=== PATIENT | male | born 1950 | race Caucasian/White ===

== ENCOUNTER → 2016-04-20 | Outpatient (CLI) | payer OTHER ==
--- NOTE | 2016-04-20 15:17 | DX ---
Cervical Spine, Two Views April 20, 2016 Indication: Fell last week. Pain. Technique: Upright AP and lateral views. Findings: The occiput through T1 is anatomically aligned. No acute fracture. Minimal age-appropriate degenerative disk disease is present at C5-C6 and C6-C7. Prevertebral soft tissues are normal. Minima l carotid calcified plaque on the left. Impressions 1. No fracture. 2. Minimal left calcified carotid plaque.
--- NOTE | 2016-04-20 18:16 | DX ---
Thoracic spine - 3 views dated April 20, 2016 Indication: Fall. Technique: AP, lateral, and swimmer's view. Comparison: Reconstruction of the thoracic spine from CT angiogram of the chest dated March 22 16 Findings: Thoracic spine is anatomically aligned. No compression fracture or paraspinal soft tissue s welling. Diffuse mild degenerative disk disease is unchanged. Impression: Negative. No acute fracture
== END ==
LOC: FIMAGING 09:32
PROVIDERS: ATTEND Physician Assistant
DX: M54.6 Pain in thoracic spine (principal); M54.2 Cervicalgia

== ENCOUNTER 2017-01-12 20:12 | Emergency (ER) | payer OTHER ==
[2017-01-12 20:24] VITALS: BP 108/72; PULSE 93; RESP 18; TEMP 98.1; O2SAT 93
[2017-01-12 20:46] LABS: % IMMATURE GRANULYOCYTES 0.6 % (0.0-1.1); ABSOLUTE IMMATURE GRANULOCYTES 0.05 10^3/uL (0.00-0.10); ADD DIFF? NO; ADD MORPH? NO; ADD SCAN? NO; ATYPICAL LYMPHOCYTE FLAG 0 (0-99); FRAGMENT RBC FLAG 0 (0-99); HEMATOCRIT 44.4 % (40.0-51.0); LEFT SHIFT FLG 0 (0-99); LIPEMIA HEMOLYSIS FLAG 90 (0-99); MEAN CELL HEMOGLOBIN 37.5 pg (27.9-34.1); MEAN CELL HEMOGLOBIN CONCENTR. 33.8 g/dL (32.4-36.7); MEAN PLATELET VOLUME 10.2 fL (8.7-11.7); PLATELET CLUMPS FLAG 10 (0-99); PLATELET COUNT 191 10^3/uL (150-400); RED CELL DISTRIBUTION WIDTH 11.8 % (11.5-15.2)
[2017-01-12 21:04] LABS: ALANINE AMINOTRANSFERASE 69 IU/L (21-72); ALBUMIN 4.2 g/dL (3.5-5.0); ALKALINE PHOSPHATASE 193 IU/L (38-126); ANION GAP 15 mEq/L (8-16); ASPARTATE AMINOTRANSFERASE 109 IU/L (17-59); BILIRUBIN,TOTAL 0.5 mg/dL (0.1-1.4); CALCIUM 10.6 mg/dL (8.5-10.4); CARBON DIOXIDE 20 mEq/l (22-31); CHLORIDE 101 mEq/L (97-110); CREATININE 1.4 mg/dL (0.7-1.3); GLOMERULAR FILTRATION RATE 50; GLUCOSE 118 mg/dL (70-100); POTASSIUM 4.7 mEq/L (3.5-5.2); SODIUM 136 mEq/L (134-144); TOTAL PROTEIN 7.4 g/dL (6.3-8.2)
--- NOTE | 2017-01-12 21:30 | EDPHY ---
H & P Stated Complaint: found down Time Seen by Provider: 01/12/17 21:07 HPI/ROS: CHIEF COMPLAINT: Overdose HISTORY OF PRESENT ILLNESS: The patient is a 58-year-old man who took his evening dose of his oxycodone and drink alcohol and then his found him minimally responsive. He was brought here by ambulance. He states that he does not need to be here. He denies suicidality. He is taking medicine for chronic left ankle pain. He denies any new injuries. He denies chest pain or shortness of breath. On I went to the room the patient had left to go outside and smoke his pipe. He eventually returned and allowed me to examine him. REVIEW OF SYSTEMS: Constitutional: denies: chills, fever, recent illness, recent injury EENTM: denies: blurred vision, double vision, nose congestion Respiratory: denies: cough, shortness of breath Cardiac: denies: chest pain, irregular heart rate, lightheadedness, palpitations Gastrointestinal/Abdominal: denies: abdominal pain, diarrhea, nausea, vomiting, blood streaked stools Genitourinary: denies: dysuria, frequency, hematuria, pain Musculoskeletal: See HPI Skin: denies: lesions, rash, jaundice, bruising Neurological: denies: headache, numbness, paresthesia, tingling, dizziness, weakness Hematologic/Lymphatic: denies: blood clots, easy bleeding, easy bruising Immunologic/allergic: denies: HIV/AIDS, transplant EXAM: GENERAL: Well-appearing, well-nourished and in no acute distress. HEAD: Atraumatic, normocephalic. EYES: Pupils equal round and reactive to light, extraocular movements intact, sclera anicteric, conjunctiva are normal. ENT: TMs normal, nares patent, oropharynx clear without exudates. Moist mucous membranes. NECK: Normal range of motion, supple without lymphadenopathy or JVD. LUNGS: Breath sounds clear to auscultation bilaterally and equal. No wheezes rales or rhonchi. HEART: Regular rate and rhythm without murmurs, rubs or gallops. ABDOMEN: Soft, nontender, normoactive bowel sounds. No guarding, no rebound. No masses appreciated. BACK: No CVA tenderness, no spinal tenderness, step-offs or deformities EXTREMITIES: Brace on left ankle, chronic pain, no swelling or deformity. No erythema. No Difficulty with weight-bearing. NEUROLOGICAL: Cranial nerves II through XII grossly intact. Normal speech, normal gait. 5/5 strength, normal movement in all extremities, normal sensation PSYCH: Normal mood, normal affect. SKIN: Warm, dry, normal turgor, no visible rashes or lesions. Source: Patient Exam Limitations: No limitations - Medical/Surgical History Hx Asthma: No Hx Chronic Respiratory Disease: No Hx Diabetes: No Hx Cardiac Disease: No Hx Renal Disease: No Hx Cirrhosis: No Hx Alcoholism: No Hx HIV/AIDS: No Hx Splenectomy or Spleen Trauma: No Other PMH: HTN/chronic back pain. Prostate cancer - Family History Significant Family History: No pertinent family hx - Social History Smoking Status: Former smoker Alcohol Use: Sober Drug Use: None Constitutional: Initial Vital Signs Temperature (C) 36.7 C 01/12/17 20:22 Heart Rate 93 01/12/17 20:22 Respiratory Rate 18 01/12/17 20:22 Blood Pressure 108/72 01/12/17 20:22 O2 Sat (%) 93 01/12/17 20:22 O2 Delivery Mode Nasal Cannula O2 (L/minute) 4 Allergies/Adverse Reactions: cocoa [chocolate] Allergy (Verified 03/22/16 21:53) iodine Allergy (Verified 03/22/16 22:30) Penicillins Allergy (Verified 06/03/15 08:16) DIFFICULTY BREATHING promethazine HCl [From Phenergan] Allergy (Verified 08/23/14 08:32) smallpox vaccine,live Allergy (Verified 08/23/14 08:33) coconut Allergy (Uncoded 03/22/16 21:53) Home Medications: Medication Instructions Recorded ALPRAZolam [Xanax 1 MG (*)] 1 mg PO HS 11/28/15 Lisinopril [Zestril 10 mg (*)] 10 mg PO DAILY 11/28/15 oxyCODONE CR [Oxycontin] 80 mg PO QID PRN 11/28/15 oxyCODONE IR [Oxycodone Ir (*)] 30 mg PO Q4-6PRN PRN 11/28/15 Meperidine HCl [Demerol 50 mg (*)] 50 mg PO Q6 PRN 03/22/16 Nicotine [Nicoderm Cq 21 mg (*)] 21 mg TD DAILY 03/23/16 amLODIPine BESYLATE [Norvasc 5 mg 5 mg PO DAILY 03/23/16 (*)] Apixaban [Eliquis] 5 mg PO BID #75 tablet 03/25/16 Medical Decision Making ED Course/Re-evaluation: When the patient came back to the room I discussed with him options. He he thinks that he was unresponsive because he took too much alcohol along with his medication. He is now clinically sober and is ambulating. He asked for more narcotic pain medication. I discussed start narcotic policy with him. I offered to treat him with Toradol or ibuprofen or Tylenol or muscle relaxants. The patient declines this and asked for us to call his to come pick him up. Differential Diagnosis: Partial list of the Differential diagnosis considered include but were not limited to; chronic pain, overdose, intoxication and although unlikely based on the history and physical exam, I also considered fracture, acute coronary disease, seizure, CVA, infection, aneurysm. I discussed these differential diagnoses and the plan with the patient as well as the usual and expected course. The patient understands that the diagnosis is provisional and that in medicine we are not always correct and that further workup is often warranted. Usual and customary warnings were given. All of the patient's questions were answered. The patient was instructed to return to the emergency department should the symptoms at all worsen or return, otherwise to followup with the physician as we discussed. - Data Points Laboratory Results: Laboratory Results 01/12/17 20:15 01/12/17 20:15 01/12/17 01/12/17 20:15 20:15 WBC 7.89 10^3/uL 10^3/uL (3.80-9.50) RBC 4.00 10^6/uL L 10^6/uL (4.40-6.38) Hgb 15.0 g/dL g/dL (13.7-17.5) Hct 44.4 % % (40.0-51.0) MCV 111.0 fL H fL (81.5-99.8) MCH 37.5 pg H pg (27.9-34.1) MCHC 33.8 g/dL g/dL (32.4-36.7) RDW 11.8 % % (11.5-15.2) Plt Count 191 10^3/uL 10^3/uL (150-400) MPV 10.2 fL fL (8.7-11.7) Neut % (Auto) 72.6 % % (39.3-74.2) Lymph % (Auto) 16.7 % % (15.0-45.0) [place] % (Auto) 8.5 % % (4.5-13.0) Eos % (Auto) 1.1 % % (0.6-7.6) Baso % (Auto) 0.5 % % (0.3-1.7) Nucleat RBC Rel Count 0.0 % % (0.0-0.2) Absolute Neuts (auto) 5.72 10^3/uL 10^3/uL (1.70-6.50) Absolute Lymphs (auto) 1.32 10^3/uL 10^3/uL (1.00-3.00) Absolute Monos (auto) 0.67 10^3/uL 10^3/uL (0.30-0.80) Absolute Eos (auto) 0.09 10^3/uL 10^3/uL (0.03-0.40) Absolute Basos (auto) 0.04 10^3/uL 10^3/uL (0.02-0.10) Absolute Nucleated RBC 0.00 10^3/uL 10^3/uL (0-0.01) Immature Gran % 0.6 % % (0.0-1.1) Immature Gran # 0.05 10^3/uL 10^3/uL (0.00-0.10) Sodium 136 mEq/L mEq/L (134-144) Potassium 4.7 mEq/L mEq/L (3.5-5.2) Chloride 101 mEq/L mEq/L (97-110) Carbon Dioxide 20 mEq/l L mEq/l (22-31) Anion Gap 15 mEq/L mEq/L (8-16) BUN 23 mg/dL mg/dL (7-23) Creatinine 1.4 mg/dL H mg/dL (0.7-1.3) Estimated GFR 50 Glucose 118 mg/dL H mg/dL (70-100) Calcium 10.6 mg/dL H mg/dL (8.5-10.4) Total Bilirubin 0.5 mg/dL mg/dL (0.1-1.4) AST 109 IU/L H IU/L (17-59) ALT 69 IU/L IU/L (21-72) Alkaline Phosphatase 193 IU/L H IU/L (38-126) Total Protein 7.4 g/dL g/dL (6.3-8.2) Albumin 4.2 g/dL g/dL (3.5-5.0) Departure - Departure Disposition: Home, Routine, Self-Care Clinical Impression: Overdose Qualifiers: Encounter type: initial encounter Injury intent: accidental or unintentional Qualified Code(s): T50.901A - Poisoning by unspecified drugs, medicaments and biological substances, accidental (unintentional), initial encounter Condition: Fair Instructions: Opioid Overdose (ED) Referrals: Deepak Jurado DO [Primary Care Provider] - As per Instructions
== END 2017-01-12 21:33 | disposition home or self-care (01) ==
LOC: EDBD → EDUNIT#
DX: T40.2X1A Poisoning by other opioids, accidental (unintentional), initial encounter (principal); I10 Essential (primary) hypertension; Z85.46 Personal history of malignant neoplasm of prostate; Z87.891 Personal history of nicotine dependence

== ENCOUNTER 2017-03-13 08:51 | Inpatient (IN) | payer OTHER ==
--- NOTE | 2017-03-13 09:18 | CPEKG ---
Heart Rate: 88 RR Interval: 682 P-R Interval: 172 QRSD Interval: 86 QT Interval: 356 QTC Interval: 431 P [place]: 35 QRS [place]: 12 T Wave [place]: 51 EKG Severity - NORMAL ECG - EKG Impression: SINUS RHYTHM Electronically Signed By: Thais Mejia 13-Mar-2017 15:04:30
[2017-03-13 09:20] LABS: % IMMATURE GRANULYOCYTES 0.6 % (0.0-1.1); ABSOLUTE IMMATURE GRANULOCYTES 0.09 10^3/uL (0.00-0.10); ADD DIFF? NO; ADD MORPH? NO; ADD SCAN? NO; ATYPICAL LYMPHOCYTE FLAG 0 (0-99); FRAGMENT RBC FLAG 0 (0-99); HEMATOCRIT 37.3 % (40.0-51.0); HEMOGLOBIN 13.3 g/dL (13.7-17.5); LEFT SHIFT FLG 10 (0-99); LIPEMIA HEMOLYSIS FLAG 90 (0-99); MEAN CELL HEMOGLOBIN 33.9 pg (27.9-34.1); MEAN CELL HEMOGLOBIN CONCENTR. 35.7 g/dL (32.4-36.7); MEAN CELL VOLUME 95.2 fL (81.5-99.8); PLATELET CLUMPS FLAG 0 (0-99); PLATELET COUNT 268 10^3/uL (150-400); RED BLOOD CELL COUNT 3.92 10^6/uL (4.40-6.38); RED CELL DISTRIBUTION WIDTH 12.3 % (11.5-15.2)
[2017-03-13] MEDS ORDERED: NS 1,000 ML IV ONE (09:23)
[2017-03-13 09:39] LABS: ALANINE AMINOTRANSFERASE 32 IU/L (21-72); ALBUMIN 3.1 g/dL (3.5-5.0); ALKALINE PHOSPHATASE 134 IU/L (38-126); ANION GAP 12 mEq/L (8-16); ASPARTATE AMINOTRANSFERASE 45 IU/L (17-59); BILIRUBIN,TOTAL 0.9 mg/dL (0.1-1.4); CARBON DIOXIDE 23 mEq/l (22-31); CHLORIDE 98 mEq/L (97-110); GLOMERULAR FILTRATION RATE > 60; GLUCOSE 106 mg/dL (70-100); POTASSIUM 4.5 mEq/L (3.5-5.2); SODIUM 133 mEq/L (134-144); TOTAL PROTEIN 6.1 g/dL (6.3-8.2)
--- NOTE | 2017-03-13 10:04 | EDPHY ---
H & P Time Seen by Provider: 03/13/17 09:06 HPI/ROS: CHIEF COMPLAINT: Cough, fever Limitations: Altered mental status HISTORY OF PRESENT ILLNESS: 67-year-old male with a history of chronic low back pain presents with fever and cough. Unknown onset of fever and cough, probably started a few days ago. The cough is productive and associated with shortness of breath and generalized weakness. Had a flu vaccination this year. No change in usual back pain; taking pain medications as prescribed. REVIEW OF SYSTEMS: Eyes: No visual changes ENT: No sore throat Cardiac: No chest pain Gastrointestinal: No nausea, no vomiting, no abdominal pain Genitourinary: no dysuria Musculoskeletal: No myalgias Skin: No rash Neurological: No headache Psychiatric: No depression Past Medical/Surgical History: Chronic low back pain, narcotic dependency Social History: Smoking Status: Former smoker Physical Exam: General Appearance: Drowsy, answers some questions, but is somewhat confused Eyes: Pupils equal and round, no conjunctival injection ENT, Mouth: Mucous membranes moist Neck: Normal inspection Respiratory: rales in the right upper lung field Cardiovascular: Regular rate and rhythm Gastrointestinal: Abdomen is soft and nontender Neurological: alert, oriented x3, nonfocal exam Skin: Warm and dry Extremities: Nontender, no pedal edema Psychiatric: flat affect Constitutional: Initial Vital Signs Temperature (C) 37 C 03/13/17 09:03 Heart Rate 93 03/13/17 09:03 Respiratory Rate 25 H 03/13/17 09:03 Blood Pressure 85/45 L 03/13/17 09:03 O2 Sat (%) 91 L 03/13/17 09:03 O2 Delivery Mode Nasal Cannula O2 (L/minute) 3 Allergies/Adverse Reactions: avocado Allergy (Verified 03/13/17 09:03) cocoa [chocolate] Allergy (Verified 03/22/16 21:53) iodine Allergy (Verified 03/22/16 22:30) Penicillins Allergy (Verified 06/03/15 08:16) DIFFICULTY BREATHING promethazine HCl [From Phenergan] Allergy (Verified 08/23/14 08:32) smallpox vaccine,live Allergy (Verified 08/23/14 08:33) coconut Allergy (Uncoded 03/22/16 21:53) wasp venom Allergy (Uncoded 03/13/17 09:03) Home Medications: Medication Instructions Recorded ALPRAZolam [Xanax 1 MG (*)] 1 mg PO HS 11/28/15 Lisinopril [Zestril 10 mg (*)] 10 mg PO HS 11/28/15 oxyCODONE CR [Oxycontin] 160 mg PO BID 11/28/15 oxyCODONE IR [Oxycodone Ir (*)] 60 mg PO Q4HRS PRN 11/28/15 amLODIPine BESYLATE [Norvasc 5 mg 5 mg PO HS 03/23/16 (*)] Apixaban [Eliquis] 5 mg PO BID #75 tablet 03/25/16 Medical Decision Making - Diagnostics EKG Interpretation: EKG interpreted by me reveals normal sinus rhythm, rate 88, no ST or T segment changes. Imaging Results: Imaging Impressions Chest X-Ray 03/13/17 10:01 Impression: Suspect right upper lobe pneumonia. Considering the bulging fissure , an underlying lung abscess or mass could be present. Associated, less dominant , inflammatory or neoplastic nodules are also suspect. The patient does have a history of inflammatory nodules in the right upper lobe in 2013. Potentially the patient could have septic emboli. Is there a heart murmur or history of endocarditis? Recommend chest CT with IV contrast for further evaluation, when the patient is clinically able. A message was left for Dr. Mejia at 10:38 AM. ED Course/Re-evaluation: This patient presents with cough, fever and likely pneumonia. Initial vital signs are normal. IV normal saline 1 L given. Blood cultures drawn. Chest x-ray results discussed with patient. Levaquin 750 mg IV given. Initial lactate is normal. The hospitalist service was consulted for admission. 1130am--BP decreased to 81/60. Meets severe sepsis protocol. IV normal saline 30 mL/kilogram ordered. Will reassess after IV fluids. 13 10: SBP has remained greater than 90 after IV normal saline. Will continue IVF, abx, reassessments. Differential Diagnosis: Altered mental status including but not limited to hypoglycemia, infectious process, electrolyte abnormality, head injury and intoxicants. - Data Points Laboratory Results: Laboratory Results 03/13/17 09:10 03/13/17 09:10 03/13/17 03/13/17 03/13/17 09:55 09:10 09:10 WBC RBC Hgb Hct MCV MCH MCHC RDW Plt Count MPV Neut % (Auto) Lymph % (Auto) [place] % (Auto) Eos % (Auto) Baso % (Auto) Nucleat RBC Rel Count Absolute Neuts (auto) Absolute Lymphs (auto) Absolute Monos (auto) Absolute Eos (auto) Absolute Basos (auto) Absolute Nucleated RBC Immature Gran % Immature Gran # PT 18.6 SEC H SEC (12.0-15.0) INR 1.54 H (0.83-1.16) APTT 46.8 SEC H SEC (23.0-38.0) VBG Lactic Acid 0.9 mmol/L mmol/L (0.7-2.1) Sodium 133 mEq/L L mEq/L (134-144) Potassium 4.5 mEq/L mEq/L (3.5-5.2) Chloride 98 mEq/L mEq/L (97-110) Carbon Dioxide 23 mEq/l mEq/l (22-31) Anion Gap 12 mEq/L mEq/L (8-16) BUN 15 mg/dL mg/dL (7-23) Creatinine 1.0 mg/dL mg/dL (0.7-1.3) Estimated GFR > 60 Glucose 106 mg/dL H mg/dL (70-100) Calcium 10.0 mg/dL mg/dL (8.5-10.4) Total Bilirubin 0.9 mg/dL mg/dL (0.1-1.4) AST 45 IU/L IU/L (17-59) ALT 32 IU/L IU/L (21-72) Alkaline Phosphatase 134 IU/L H IU/L (38-126) Total Protein 6.1 g/dL L g/dL (6.3-8.2) Albumin 3.1 g/dL L g/dL (3.5-5.0) 03/13/17 09:10 WBC 15.48 10^3/uL H 10^3/uL (3.80-9.50) RBC 3.92 10^6/uL L 10^6/uL (4.40-6.38) Hgb 13.3 g/dL L g/dL (13.7-17.5) Hct 37.3 % L % (40.0-51.0) MCV 95.2 fL fL (81.5-99.8) MCH 33.9 pg pg (27.9-34.1) MCHC 35.7 g/dL g/dL (32.4-36.7) RDW 12.3 % % (11.5-15.2) Plt Count 268 10^3/uL 10^3/uL (150-400) MPV 11.0 fL fL (8.7-11.7) Neut % (Auto) 83.1 % H % (39.3-74.2) Lymph % (Auto) 6.8 % L % (15.0-45.0) [place] % (Auto) 9.1 % % (4.5-13.0) Eos % (Auto) 0.1 % L % (0.6-7.6) Baso % (Auto) 0.3 % % (0.3-1.7) Nucleat RBC Rel Count 0.0 % % (0.0-0.2) Absolute Neuts (auto) 12.87 10^3/uL H 10^3/uL (1.70-6.50) Absolute Lymphs (auto) 1.06 10^3/uL 10^3/uL (1.00-3.00) Absolute Monos (auto) 1.41 10^3/uL H 10^3/uL (0.30-0.80) Absolute Eos (auto) 0.01 10^3/uL L 10^3/uL (0.03-0.40) Absolute Basos (auto) 0.04 10^3/uL 10^3/uL (0.02-0.10) Absolute Nucleated RBC 0.00 10^3/uL 10^3/uL (0-0.01) Immature Gran % 0.6 % % (0.0-1.1) Immature Gran # 0.09 10^3/uL 10^3/uL (0.00-0.10) PT INR APTT VBG Lactic Acid Sodium Potassium Chloride Carbon Dioxide Anion Gap BUN Creatinine Estimated GFR Glucose Calcium Total Bilirubin AST ALT Alkaline Phosphatase Total Protein Albumin Medications Given: Sodium Chloride (Ns) 1,000 mls @ 150 mls/hr IV CONT [place] Stop: 09/09/17 12:44 Last Admin: 03/13/17 14:02 Dose: 1,000 mls Discontinued Medications Sodium Chloride (Ns) 1,000 mls @ 0 mls/hr IV EDNOW ONE; Wide Open PRN Reason: Protocol Stop: 03/13/17 09:24 Last Admin: 03/13/17 09:30 Dose: 1,000 mls Levofloxacin/Dextrose (Levaquin 750 Mg (Premix)) 150 mls @ 100 mls/hr IV EDNOW ONE PRN Reason: Protocol Stop: 03/13/17 12:03 Last Admin: 03/13/17 11:11 Dose: 150 mls Sodium Chloride (Ns) 2,000 mls @ 4,000 mls/hr 30 ml/kg infuse over 30 min ( 2000 ml) IV EDNOW ONE PRN Reason: Protocol Stop: 03/13/17 11:59 Last Admin: 03/13/17 11:42 Dose: 1,000 mls Departure - Departure Disposition: [facility] Inpatient Acute Clinical Impression: Severe sepsis Pneumonia Qualifiers: Pneumonia type: due to unspecified organism Laterality: right Lung location: upper lobe of lung Qualified Code(s): J18.1 - Lobar pneumonia, unspecified organism Condition: Fair
[2017-03-13 11:19] LABS: COLOR YELLOW; LEUKOCYTE ESTERASE,URINE NEGATIVE (NEGATIVE); NITRITE,URINE NEGATIVE (NEGATIVE)
[2017-03-13] MEDS ORDERED: NS 2,000 ML IV ONE (11:30)
[2017-03-13] MEDS ORDERED: ALTEPLASE 2 MG VIAL IVP PRN (11:34)
[2017-03-13 12:23] LABS: INR 1.54 (0.83-1.16); PROTIME(PATIENT) 18.6 SEC (12.0-15.0)
[2017-03-13 12:25] LABS: APTT 46.8 SEC (23.0-38.0)
[2017-03-13] MEDS ORDERED: ONDANSETRON DISINTEGRATING 4 MG TAB PO PRN (12:32)
[2017-03-13] MEDS ORDERED: ONDANSETRON 4 MG/2 ML VIAL IVP PRN (12:32)
[2017-03-13] MEDS ORDERED: ACETAMINOPHEN 325 MG TAB PO PRN (12:32)
[2017-03-13] MEDS ORDERED: NS 1,000 ML IV SCH (12:45)
--- NOTE | 2017-03-13 13:19 | GHP ---
[f rep st] HISTORY AND PHYSICAL DATE OF ADMISSION: 03/13/2017 HISTORY OF PRESENT ILLNESS: The patient is a pleasant 67-year-old gentleman with a history of chroni c pain, on chronic narcotics, as well as cholecystectomy and pulmonary embolism, who presents with wh at sounds like about a week of increasing shortness of breath. He has had a cough productive of sput um. He has not really had subjective fevers and chills. About a month ago, he was struggling a bit with his alcohol intake, but denies any episodes of blackout, drinking, or coughing with eating or vo miting while lying supine. His notes that he has been doing what she calls the old man shuffle, which is him walking more slowly with a difficult gait. He has had no abdominal pain. He has continued to take his Eliquis and narcotics. His last bowel mo vement was yesterday evening. He had a flu vaccine this year. He has taken the pneumonia vaccine. He notes generalized weakness. REVIEW OF SYSTEMS: Complete 10-point review of systems conducted, negative, except as noted in the H PI. PAST MEDICAL HISTORY: 1. Pulmonary embolism in March of 2016. 2. Cholecystectomy in November of 2015. 3. PTSD. 4. Migraines. 5. Hypertension. 6. COPD, on home oxygen. 7. Chronic hypoxemic respiratory failure. 8. Degenerative disk disease. 9. Pseudogout. 10. Pulmonary hypertension. 11. Coronary calcifications. 12. Diastolic heart dysfunction. 13. Prostate cancer. 14. Continuous narcotic dependence. 15. Bilateral shoulder surgery. 16. Bilateral knee replacement. 17. Cholecystectomy. 18. Prostatectomy. 19. Umbilical hernia repair surgery. 20. Tonsillectomy. HABITS: He quit smoking cigarettes. He smokes a pipe. Alcohol use is as in the HPI. FAMILY HISTORY: The patient is adopted. PHYSICAL EXAMINATION: PRESENTING VITALS: Temp 37, blood pressure 85/45, pulse 93, breathing 25 time s a minute, 91% on 5 L. GENERAL: No acute distress. Chronically ill appearing. HEENT: Sclerae an icteric. Oropharynx clear. Mucous membranes are moist. NECK: Supple, without lymphadenopathy or J VD. LUNGS: Decreased breath sounds and crackles with inspiratory wheezes in the right side, clear o n the left. HEART: S1, S2. Not tachycardic. ABDOMEN: Soft, nontender, nondistended. LOWER EXTRE MITIES: Without edema. Calves nontender. SKIN: Without rash. NEUROLOGIC: Exam is nonfocal. LABORATORY DATA: Sodium 133, potassium 4.5, chloride 98, bicarb 22, BUN 15, creatinine 1.0. Baselin e is about 0.8. Glucose 106. Alkaline phosphatase modestly elevated. LFTs are otherwise normal. B ilirubin 0.9. Venous lactate is 0.9. INR is 1.5. White count 15.5 with a left shift. Hematocrit i s 37.3. UA is negative. Chest x-ray, interpreted by me, shows right upper lobe pneumonia with an el ement of right lower lobe airspace disease as well. There are inflammatory nodules also suspected. EKG interpreted by me shows sinus rhythm at 88 with normal axis and intervals. No ST or T-wave [place] es. I discussed the case with Dr. Bobbi Mejia. ASSESSMENT/PLAN: A 67-year-old gentleman who presents with pneumonia. In the emergency room, he bec carson hypotensive, consistent with possible severe sepsis. 1. Sepsis. Source is his lungs. He has been volume resuscitated. His lactate is normal. I will r epeat it now given the intercurrent hypotension. 2. Right upper lobe pneumonia concerning for potential aspiration. I will change him from levofloxa osvaldo to ertapenem and Zithromax. He does have a penicillin allergy precluding the use of Unasyn. 3. I will have speech language pathology evaluation. 4. Chronic hypoxemic respiratory failure. This is multifactorial. He is currently on 3 L. 5. Chronic pain. I will continue his medications. His OxyContin is listed as 160 b.i.d. I will ch yue this to 80 mg q.i.d. as this is how it is administered at home. I do acknowledge these high dos es. 6. Prophylaxis: The patient is high risk. 7. History of pulmonary embolism. He is on Eliquis, which I have continued. 8. Leukocytosis, attributable to pneumonia. 9. Disposition: Inpatient status. /[id number]/MODL
[2017-03-13 15:56] LABS: ANION GAP 9 mEq/L (8-16); BILIRUBIN,TOTAL 0.8 mg/dL (0.1-1.4); CALCIUM 9.4 mg/dL (8.5-10.4); CARBON DIOXIDE 21 mEq/l (22-31); CHLORIDE 104 mEq/L (97-110); CREATININE 0.8 mg/dL (0.7-1.3); GLOMERULAR FILTRATION RATE > 60; GLUCOSE 101 mg/dL (70-100); POTASSIUM 4.3 mEq/L (3.5-5.2); SODIUM 134 mEq/L (134-144)
[2017-03-13] MEDS: ERTAPENEM 1 GM VIAL IVP SCH (16:29)
--- NOTE | 2017-03-13 18:10 | PDMN ---
Medical Necessity Medical necessity: M160 sepsis- A-2 sepsis with hypotension, pna, poss aspiration pna, hypoxemia- 5L 91% currently on 3L ( 97%) , chronic pain, hx PE, leukocytosis,
[2017-03-13] MEDS: APIXABAN 5 MG TAB PO SCH (20:37)
[2017-03-13] MEDS: ALPRAZolam 1 MG TAB PO SCH (20:37)
[2017-03-13] MEDS: amLODIPine BESYLATE 5 MG TAB PO SCH (20:37)
[2017-03-14 06:33] LABS: ANION GAP 10 mEq/L (8-16); CALCIUM 9.9 mg/dL (8.5-10.4); CARBON DIOXIDE 23 mEq/l (22-31); CHLORIDE 103 mEq/L (97-110); CREATININE 0.8 mg/dL (0.7-1.3); GLOMERULAR FILTRATION RATE > 60; GLUCOSE 101 mg/dL (70-100); POTASSIUM 4.3 mEq/L (3.5-5.2); SODIUM 136 mEq/L (134-144)
[2017-03-14 06:38] LABS: % IMMATURE GRANULYOCYTES 0.5 % (0.0-1.1); ABSOLUTE IMMATURE GRANULOCYTES 0.09 10^3/uL (0.00-0.10); ADD DIFF? NO; ADD MORPH? NO; ADD SCAN? NO; ATYPICAL LYMPHOCYTE FLAG 0 (0-99); FRAGMENT RBC FLAG 0 (0-99); HEMATOCRIT 32.9 % (40.0-51.0); HEMOGLOBIN 11.2 g/dL (13.7-17.5); LEFT SHIFT FLG 0 (0-99); LIPEMIA HEMOLYSIS FLAG 90 (0-99); MEAN CELL HEMOGLOBIN 32.6 pg (27.9-34.1); MEAN CELL VOLUME 95.6 fL (81.5-99.8); MEAN PLATELET VOLUME 10.6 fL (8.7-11.7); PLATELET CLUMPS FLAG 0 (0-99); PLATELET COUNT 250 10^3/uL (150-400); RED BLOOD CELL COUNT 3.44 10^6/uL (4.40-6.38); RED CELL DISTRIBUTION WIDTH 12.2 % (11.5-15.2)
[2017-03-14 07:04] LABS: ANION GAP 9 mEq/L (8-16); CALCIUM 9.9 mg/dL (8.5-10.4); CARBON DIOXIDE 24 mEq/l (22-31); CHLORIDE 104 mEq/L (97-110); CREATININE 0.8 mg/dL (0.7-1.3); GLOMERULAR FILTRATION RATE > 60; GLUCOSE 102 mg/dL (70-100); POTASSIUM 4.2 mEq/L (3.5-5.2); SODIUM 137 mEq/L (134-144)
[2017-03-14] MEDS ORDERED: ALBUTEROL 3 ML DEYVIAL IH PRN (08:47)
--- NOTE | 2017-03-14 08:56 | HOSPPROG ---
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 confused this AM. Objective: Vital Signs Temp Pulse Resp BP Pulse Ox 36.9 C 115 H 20 122/69 H 96 03/14/17 02:31 03/14/17 02:31 03/13/17 23:55 03/14/17 02:31 03/14/17 02:31 Microbiology 03/13/17 16:30 Respiratory Panel (PCR) - Final Nasal, Sinus - Swab No Organism Detected Laboratory Results 03/14/17 06:30 03/14/17 06:30 03/13/17 03/14/17 03/15/17 05:59 05:59 05:59 Intake Total 2359 Balance 2359 PT 18.6 SEC (12.0-15.0) H 03/13/17 09:10 INR 1.54 (0.83-1.16) H 03/13/17 09:10 - Physical Exam Constitutional: no apparent distress, appears nourished Eyes: PERRL, anicteric sclera Ears, Nose, Mouth, Throat: moist mucous membranes, hearing normal Cardiovascular: regular rate and rhythym, no murmur, rub, or gallop Respiratory: no respiratory distress, inspiratory crackles, bronchial breath sounds, other (rhonchorous throughout. good air movement. scattered wheezes) Gastrointestinal: normoactive bowel sounds, soft, non-tender abdomen Genitourinary: no bladder fullness, No tolbert in urethra Skin: warm, normal color Musculoskeletal: full muscle strength, no muscle tenderness Neurologic: No AAOx3 ICD10 Worksheet Patient Problems: Problems Problem Status Onset Pneumonia Acute Severe sepsis Acute Chest pain Acute Pulmonary emboli Acute Sepsis Acute
--- NOTE | 2017-03-14 09:18 | ASMTCMCOM ---
CM Note CM Note Notes: 03/14/2017 Case Management Note Reviewed chart. Pt admitted for IV abx d/t pneumonia. Case Management d/c poc: to be determined. Awaiting PT and SLT evals for guidance in creating d/c plan. Case Management to follow. Date Signed: 03/14/2017 09:17 AM Electronically Signed By:Galina Trinh RN
[2017-03-14] MEDS: APIXABAN 5 MG TAB PO SCH ×2 (09:36→20:48)
[2017-03-14] MEDS: AZITHROMYCIN IV 500 MG in D5W 250 ML IV SCH (09:38)
[2017-03-14] MEDS: ERTAPENEM 1 GM VIAL IVP SCH (09:38)
[2017-03-14] MEDS: ALPRAZolam 1 MG TAB PO SCH (20:48)
[2017-03-14] MEDS: amLODIPine BESYLATE 5 MG TAB PO SCH (20:49)
[2017-03-15 06:13] LABS: % IMMATURE GRANULYOCYTES 0.4 % (0.0-1.1); ABSOLUTE IMMATURE GRANULOCYTES 0.05 10^3/uL (0.00-0.10); ADD DIFF? NO; ADD MORPH? NO; ADD SCAN? NO; ATYPICAL LYMPHOCYTE FLAG 20 (0-99); FRAGMENT RBC FLAG 0 (0-99); HEMATOCRIT 34.3 % (40.0-51.0); HEMOGLOBIN 11.9 g/dL (13.7-17.5); LEFT SHIFT FLG 0 (0-99); LIPEMIA HEMOLYSIS FLAG 90 (0-99); MEAN CELL HEMOGLOBIN 33.2 pg (27.9-34.1); MEAN CELL HEMOGLOBIN CONCENTR. 34.7 g/dL (32.4-36.7); MEAN CELL VOLUME 95.8 fL (81.5-99.8); MEAN PLATELET VOLUME 10.6 fL (8.7-11.7); PLATELET CLUMPS FLAG 0 (0-99); PLATELET COUNT 269 10^3/uL (150-400); RED BLOOD CELL COUNT 3.58 10^6/uL (4.40-6.38); RED CELL DISTRIBUTION WIDTH 12.4 % (11.5-15.2)
[2017-03-15 06:59] LABS: ANION GAP 10 mEq/L (8-16); CALCIUM 9.8 mg/dL (8.5-10.4); CARBON DIOXIDE 25 mEq/l (22-31); CHLORIDE 102 mEq/L (97-110); CREATININE 0.7 mg/dL (0.7-1.3); GLOMERULAR FILTRATION RATE > 60; GLUCOSE 115 mg/dL (70-100); POTASSIUM 4.4 mEq/L (3.5-5.2); SODIUM 137 mEq/L (134-144)
[2017-03-15] MEDS: APIXABAN 5 MG TAB PO SCH ×2 (08:42→22:06)
[2017-03-15] MEDS: ERTAPENEM 1 GM VIAL IVP SCH (08:42)
[2017-03-15] MEDS: AZITHROMYCIN IV 500 MG in D5W 250 ML IV SCH (08:42)
--- NOTE | 2017-03-15 15:17 | HOSPPROG ---
Hospitalist Progress Note Assessment/Plan: 67 yo M w chronic pain, continuous narcotics here w RUL pneumonia. First encounter, chart reviewed. D/W radiology and Dr Mcdonough. pneumonia: ertapenem/azithro, PCN allergy PREVENTION COORDINATOR eval clinically better today abnormal CXR and CT, reviewed with radiology, get pulm consult pt with iodine allergy, will need to premedicate for ct with contrast wheezes: albuterol nebs tachycardia noted tachycardia: euvolemic follow regular on exam proph: anticoagulated chronic pain: continue home pain meds oxycontin 80mg po bid on hold sepsis: resolved dispo: inpatient pulm consult reviewed antibiotics curbside with ID, cont current based on allergies and diagnosis Subjective: Up in the chair. Wants to smoke his pipe. Wants to go home. Objective: Vital Signs Temp Pulse Resp BP Pulse Ox 36.6 C 78 18 99/63 L 95 03/15/17 11:31 03/15/17 11:31 03/15/17 11:31 03/15/17 11:31 03/15/17 11:31 Laboratory Results 03/15/17 Unknown 03/15/17 Unknown 03/14/17 03/15/17 03/16/17 05:59 05:59 05:59 Intake Total 2359 1100 Balance 2359 1100 PT 18.6 SEC (12.0-15.0) H 03/13/17 09:10 INR 1.54 (0.83-1.16) H 03/13/17 09:10 - Physical Exam Constitutional: appears nourished, chronically ill appearing, uncomfortable Eyes: PERRL, anicteric sclera, EOMI Ears, Nose, Mouth, Throat: moist mucous membranes, hearing normal, ears appear normal Cardiovascular: regular rate and rhythym, tachycardia, No JVD, No edema Respiratory: no respiratory distress, reduced air movement, rhonchi Gastrointestinal: normoactive bowel sounds, No tenderness, No ascites Skin: warm, normal color, No erythema Musculoskeletal: no joint effusions, joint tenderness, generalized weakness Psychiatric: not anxious, poor insight, poor judgement, poor memory ICD10 Worksheet Patient Problems: Problems Problem Status Onset Pneumonia Acute Sepsis Acute Severe sepsis Acute Chest pain Acute Pulmonary emboli Acute
--- NOTE | 2017-03-15 15:25 | ASMTCMCOM ---
CM Note CM Note Notes: 03/15/2017 Case Management Note Met w/pt to discuss PT recommendations for SNF rehab stay. Pt confusion prevented meaningful conversation. Called Radha to discuss possible facilities. Radha requested referrals to [facility], [facility] and [facility]. Faxed referrals. Case Management to call Radha tomorrow with updates for placement. Case Management d/c poc: To SNF rehab pending authorization from [facility]. Case Management to follow. Date Signed: 03/15/2017 03:24 PM Electronically Signed By:Galina Trinh RN
[2017-03-15] MEDS: ALPRAZolam 1 MG TAB PO SCH (22:06)
[2017-03-15] MEDS: amLODIPine BESYLATE 5 MG TAB PO SCH (22:06)
[2017-03-16] MEDS: ERTAPENEM 1 GM VIAL IVP SCH (08:30)
[2017-03-16] MEDS: APIXABAN 5 MG TAB PO SCH ×2 (08:30→20:26)
[2017-03-16] MEDS: AZITHROMYCIN IV 500 MG in D5W 250 ML IV SCH (08:30)
--- NOTE | 2017-03-16 12:56 | HOSPPROG ---
Hospitalist Progress Note Assessment/Plan: DIAGNOSES: -acute sepsis with hypotension, tachycardia, tachypnea, high white blood cell count pneumonia -acute right lung pneumonia, suspected aspiration due to his the pain medication use -Acute on chronic hypoxemic respiratory failure -gait instability which is moderately severe, fall at home -chronic pain with chronic use of PLANS: Particularly due to the patient's gait instability I have strongly recommended to him that he continue hospital care at this time, however so far he is not accepting of this but will take some time to think about it and will check back with him later -continue current antibiotic therapy -continue fall risk precautions -continue PT and OT -continue respiratory care and oxygen SUBJECTIVE: Says his breathing feels better and he is coughing less Still does not feel steady on his feet Admits to me now that he had fallen at home and this is causing worsening of his chronic back and bilateral leg pain making walking difficult. He he feels his pain is decreased over the last 24 hr but still significant. No focal weakness or bowel or bladder dysfunction. No chills or sweats Eating well OBJECTIVE Vitals reviewed: Oxygen use remains at 4-5 L though he currently has taken the oxygen off and does not feel short of breath beyond usual, otherwise stable without fever Exam: alert oriented relaxed skin warm dry color ok resps not labored on room air lungs clear BSs though extremely diminished heart regular abd soft nondistended nontender, bowel sounds present limbs warm, no edema I did observe him ambulating and he has an extremely narrow based short stepped the gait, moving each foot only 2-3 inches forward with each stride and with his feet just about touching as they swing through; overall this appears unstable and his equilibrium does not appear great iv site ok Laboratory data: Respiratory pathogen panel negative Cultures with no growth to date White blood cell count remains elevated significantly Objective: Vital Signs Temp Pulse Resp BP Pulse Ox 36.9 C 80 16 111/68 97 03/16/17 07:23 03/16/17 07:23 03/16/17 07:23 03/16/17 07:23 03/16/17 07:23 Laboratory Results 03/15/17 Unknown 03/15/17 Unknown 03/15/17 03/16/17 03/17/17 06:59 06:59 06:59 Intake Total 1100 468 Balance 1100 468 PT 18.6 SEC (12.0-15.0) H 03/13/17 09:10 INR 1.54 (0.83-1.16) H 03/13/17 09:10 ICD10 Worksheet Patient Problems: Problems Problem Status Onset Pneumonia Acute Severe sepsis Acute Chest pain Acute Pulmonary emboli Acute Sepsis Acute
[2017-03-16] MEDS: ALPRAZolam 1 MG TAB PO SCH (20:26)
[2017-03-16] MEDS: amLODIPine BESYLATE 5 MG TAB PO SCH (20:26)
[2017-03-17] MEDS: ERTAPENEM 1 GM VIAL IVP SCH (08:35)
[2017-03-17] MEDS: AZITHROMYCIN IV 500 MG in D5W 250 ML IV SCH (08:35)
[2017-03-17] MEDS: APIXABAN 5 MG TAB PO SCH ×2 (08:35→20:02)
--- NOTE | 2017-03-17 10:55 | PDDCSUM ---
Discharge Summary Discharge Summary: DISCHARGE DIAGNOSES: -acute sepsis with hypotension, tachycardia, tachypnea, high white blood cell count pneumonia -acute right lung pneumonia, suspected aspiration due to his the pain medication use -Acute on chronic hypoxemic respiratory failure -gait instability which is moderately severe, fall at home -chronic pain with chronic use of prescribed narcotic HOSPITAL COURSE SUMMARY: This patient presented to the hospital with shortness of breath fevers cough and was found to have an acute right lung pneumonia and acute respiratory failure with hypoxemia and history of chronic hypoxemic lung disease. He met criteria for sepsis. He was admitted the hospital with fluid resuscitation and prompt treatment with antibiotic therapy, bronchodilators, and steroid. Blood cultures and respiratory pathogen panel did not identify any organism, but due to the patient's high-dose prescribed narcotic use at home, it was felt that he was at significant risk for having had an aspiration so was treated initially for an aspiration pneumonia. With these therapies he did respond fairly well that took several days to the point where he was able to get up and walk safely and have reasonable resolution of his breathing so that he was not in distress. At this point he is now ambulating in the hallway well with a walker which she uses at home, has no dyspnea at rest and is not far from his baseline mild exertional dyspnea. He feels comfortable going home and he looks like he is very stable on his feet to me. He is eating well with no nausea. There been no complications to his hospital stay here. He is not felt to be abusing or add normally using his prescribed pain medicines at home. He does not appear to have any ongoing gait instability at this time and is not felt to be at significant fall risk PENDING TEST RESULTS: None MEDICATION CHANGES: Addition of Levaquin 750 mg for 3 more days Addition of albuterol inhaler as needed FOLLOW-UP PLAN: With primary care physician in 1-2 weeks Greater than 35 minutes bedside and care coordination time today
[2017-03-17] MEDS ORDERED: NICOTINE POLACRILEX 2 MG GUM B PRN (14:06)
--- NOTE | 2017-03-17 15:48 | ASMTCMCOM ---
CM Note CM Note Notes: Reviewed chart, spoke w/ Dr. Husain and YESSI Pierre regarding discharge plan, pt's progress. Per Dr. Husain, pt to discharge home independently w/ no identified needs today. Prior CM notes indicate SNF. Met w/ pt and pt's Radha to further discuss. Per Radha, pt remains confused and unsteady on feet; Radha uncomfortable taking pt home in current state and still feels SNF is most appropriate. Discussed alternative options such as home care (PT/OT). Pt reluctant to have home care and to be in a homebound status. Risks vs benefits explained. adamant pt is not safe for discharge. Update provided to Dr. Husain. Discharge placed on hold until 03/18/17; needs to be re-evaluated tomorrow. CM will cont to follow. Current discharge plan: TBD Date Signed: 03/17/2017 03:47 PM Electronically Signed By:Ashleigh Peralta RN
--- NOTE | 2017-03-17 16:45 | HOSPPROG ---
Hospitalist Progress Note Assessment/Plan: DIAGNOSES: -acute sepsis with hypotension, tachycardia, tachypnea, high white blood cell count pneumonia; sepsis is now resolved -acute right lung pneumonia, suspected aspiration due to his the pain medication use, no organism identified -Acute on chronic hypoxemic respiratory failure -gait instability and a fall at home, some improvement in gait stability here but still some risk of fall -chronic pain with chronic use of PLANS: Notably better today than yesterday but still with some mild confusion and some gait instability, patient and not comfortable with him going home just yet. Will continue present care here with further physical occupational therapy, hope to be able to get him home with home care in 1-2 days if not to SNF though I think that will be unlikely necessary SUBJECTIVE: When I visited the patient this morning he was feeling much better, with no shortness of breath and with better strength. I walked with him in the hallway the length of the unit and back to his room, and he did extremely well with this walking briskly with a much better gait and no evidence of any gait instability. He seemed very good mentally as well. He wished to go home and I felt he was stable for discharge so ordered discharge. However by this afternoon as his was here the patient was notably somewhat confused and not doing quite as well with balance and they did not feel safe going home. OBJECTIVE Vitals reviewed: Stable vitals, able to walk in the hallway without oxygen without any difficulty Exam: alert oriented relaxed during my exam this morning skin warm dry color ok resps not labored on room air lungs clear BSs though extremely diminished heart regular abd soft nondistended nontender, bowel sounds present limbs warm, no edema This morning I walked with the patient in the hallway, he took a walker long but really did not need to use it. He was walking very briskly with a much longer stride than yesterday, no longer narrow based stride, no sign of gait instability, and no sign of exertional dyspnea. However per nursing staff and case resolution specialist this afternoon he is notably more confused and having a lumbar trouble with balance Skin iv site ok Laboratory data: Respiratory pathogen panel negative Cultures with no growth to date White blood cell count remains elevated significantly Objective: Vital Signs Temp Pulse Resp BP Pulse Ox 36.3 C 91 19 110/68 90 L 03/17/17 07:47 03/16/17 23:38 03/17/17 07:47 03/17/17 07:47 03/17/17 11:48 Laboratory Results 03/15/17 Unknown 03/15/17 Unknown 03/16/17 03/17/17 03/18/17 06:59 06:59 06:59 Intake Total 468 600 Output Total 5 Balance 468 595 PT 18.6 SEC (12.0-15.0) H 03/13/17 09:10 INR 1.54 (0.83-1.16) H 03/13/17 09:10 - Time Spent With Patient Time Spent with Patient: greater than 35 minutes Time Spent with Patient: Greater than 35 minutes spent on this patients care, greater than 50% of time spent counseling, educating, and coordinating care regarding the above mentioned plan. ICD10 Worksheet Patient Problems: Problems Problem Status Onset Pneumonia Acute Severe sepsis Acute Chest pain Acute Pulmonary emboli Acute Sepsis Acute
[2017-03-17 17:24] VITALS: TEMP 97.7
[2017-03-17] MEDS: amLODIPine BESYLATE 5 MG TAB PO SCH (20:02)
[2017-03-17] MEDS: ALPRAZolam 1 MG TAB PO SCH (20:02)
[2017-03-18 07:23] VITALS: BP 116/77
[2017-03-18 07:35] VITALS: PULSE 82
[2017-03-18 07:36] VITALS: RESP 16; O2SAT 94
[2017-03-18] MEDS: APIXABAN 5 MG TAB PO SCH (08:00)
--- NOTE | 2017-03-18 08:22 | HOSPPROG ---
Hospitalist Progress Note Assessment/Plan: Patient is a 14-year-old male who presented the emergency room with increased shortness of breath. Today is my 1st encounter with the patient. Chart reviewed. * acute sepsis -hypertension, tachypnea, and leukocytosis, which now have resolved * acute right-sided pneumonia suspect aspiration -likely secondary from use of pain medications * acute on chronic hypoxemic respiratory failure -patient has oxygen at home * gait instability with fall at home * history of chronic pain with chronic narcotics * history of pulmonary emboli -on Eliquis * plan. Will discharge today if he continues to feel well. Patient states he has had 2 loose bowel movements and is concerned about being on antibiotics. If he continues to have loose stools will check him for Clostridium difficile. Subjective: David said he does not like being on antibiotics but overall is feeling much better Objective: Vital Signs Temp Pulse Resp BP Pulse Ox 36.5 C 82 16 116/77 94 03/18/17 07:10 03/18/17 07:35 03/18/17 07:35 03/18/17 07:10 03/18/17 07:35 Laboratory Results 03/15/17 Unknown 03/15/17 Unknown 03/17/17 03/18/17 03/19/17 05:59 05:59 05:59 Intake Total 600 250 Output Total 5 Balance 595 250 PT 18.6 SEC (12.0-15.0) H 03/13/17 09:10 INR 1.54 (0.83-1.16) H 03/13/17 09:10 - Physical Exam Constitutional: no apparent distress, appears nourished, not in pain Eyes: PERRL Ears, Nose, Mouth, Throat: hearing normal Cardiovascular: regular rate and rhythym Respiratory: no respiratory distress, clear to auscultation Gastrointestinal: normoactive bowel sounds Skin: warm Musculoskeletal: generalized weakness Neurologic: AAOx3 Psychiatric: interacting appropriately, not anxious ICD10 Worksheet Patient Problems: Problems Problem Status Onset Pneumonia Acute Severe sepsis Acute Chest pain Acute Pulmonary emboli Acute Sepsis Acute
--- NOTE | 2017-03-18 11:21 | ASMTCMCOM ---
CM Note CM Note Notes: CM met w/ pt and for d/c planning. Pt reports that he is not interested in having HC or the idea of going to a SNF. CM informed pt that if he changes his mind about having HC he can contact his PCP. is agreeable w/ plan to d/c independent. CM available for changes. Plan: Independent Date Signed: 03/18/2017 11:21 AM Electronically Signed By:TANK Wilkes
--- NOTE | 2017-03-18 11:55 | GDS ---
[f rep st] DISCHARGE SUMMARY DISCHARGE DIAGNOSES: 1. Acute sepsis. 2. Right lung pneumonia. 3. Acute on chronic hypoxemic respiratory failure. 4. Gait instability with a recent fall at home. 5. Chronic pain with chronic use of prescribed narcotics. Briefly, please see the hospital course summary written by Dr. Freedom Husain on 03/17/2017. There h ave been no significant changes. The patient stayed another night because the was concerned abo ut some confusion. Today, he is markedly better. He will continue antibiotics as prescribed by Dr. Husain for 2 more days and to get further followup with his primary care provider. DISCHARGE CONDITION: Stable. Blood pressure is 116/77, O2 sats on 2 L are 94%, temperature is 36.5 Celsius, heart rate is 82. MEDICATIONS AT DISCHARGE: Please see the EMR. DISCHARGE INSTRUCTIONS: 1. Get a repeat chest x-ray in 6 weeks for followup care. 2. Recommending he monitor his use of his narcotics, concern that he may have had some aspiration. 3. Recommending home care. At this time, the patient does not want it. Recommended that they follo w up with their primary care provider if they would like this in the future. Greater than 30 minutes discharging and coordinating the patient's care. /[id number]/MODL
--- NOTE | 2017-03-18 11:57 | ASDISCHSUM ---
Discharge Information Plan Status:Home with No Needs Medically Cleared to Leave:03/17/2017 Discharge Date:03/18/2017 11:43 AM D/C Disposition:[facility] Facility ADT D/C Disposition:Home, Routine, Self-Care Projected Discharge Date:03/18/2017 11:00 AM Transportation at D/C:Family Discharge Delay Reason: Follow-Up Date:03/18/2017 11:00 AM Discharge Slot: Final Diagnosis: Placement Information Referral Type:*Longterm/SNF Referral ID:[id number] Provider Name: Address 1: Phone Number: Address 2: Fax Number: City: Selection Factors: State: Patient Contact Information Contact Name:ARMOND Relationship: Address:[address] City:[place] Alternate Phone: State/[place] Interactive Code:[place] [address] Email: Financial Information Financial Class:Medicare Advantage Plans Primary Plan Desc:YAHIR [employer]ISS PPO MEDICARE Primary Plan Number:[id number] Secondary Plan Desc: Secondary Plan Number: Assessment Information [facility] CM Progress Note CM Note CM Note Notes: 03/14/2017 Case Management Note Reviewed chart. Pt admitted for IV abx d/t pneumonia. Case Management d/c poc: to be determined. Awaiting PT and SLT riki for guidance in creating d/c plan. Case Management to follow. Date Signed: 03/14/2017 09:17 AM Electronically Signed By:Galina Trinh RN [facility] CM Progress Note CM Note CM Note Notes: 03/15/2017 Case Management Note Met w/pt to discuss PT recommendations for SNF rehab stay. Pt confusion prevented meaningful conversation. Called Radha to discuss possible facilities. Radha requested referrals to [facility], [facility] and [facility]. Faxed referrals. Case Management to call Radha tomorrow with updates for placement. Case Management d/c poc: To SNF rehab pending authorization from [facility]. Case Management to follow. Date Signed: 03/15/2017 03:24 PM Electronically Signed By:Galina Trinh RN [facility] CM Progress Note CM Note CM Note Notes: Reviewed chart, spoke w/ Dr. Husain and YESSI Pierre regarding discharge plan, pt's progress. Per Dr. Husain, pt to discharge home independently w/ no identified needs today. Prior CM notes indicate SNF. Met w/ pt and pt's Radha to further discuss. Per Radha, pt remains confused and unsteady on feet; Radha uncomfortable taking pt home in current state and still feels SNF is most appropriate. Discussed alternative options such as home care (PT/OT). Pt reluctant to have home care and to be in a homebound status. Risks vs benefits explained. adamant pt is not safe for discharge. Update provided to Dr. Husain. Discharge placed on hold until Sat03/18/17; needs to be re-evaluated tomorrow. CM will cont to follow. Current discharge plan: TBD Date Signed: 03/17/2017 03:47 PM Electronically Signed By:Ashleigh Peralta RN [facility] CM Progress Note CM Note CM Note Notes: CM met w/ pt and for d/c planning. Pt reports that he is not interested in having HC or the idea of going to a SNF. CM informed pt that if he changes his mind about having HC he can contact his PCP. is agreeable w/ plan to d/c independent. CM available for changes. Plan: Independent Date Signed: 03/18/2017 11:21 AM Electronically Signed By:TANK Wilkes Intervention Information
== END 2017-03-18 11:43 | disposition home or self-care (01) | DRG 871 ==
LOC: EDUNIT# → UNDOADMIN 10:55 → F3E 13:35
PROVIDERS: ADMIT Internal Medicine; ATTEND Internal Medicine
PROC: 02HV33Z Insertion of Infusion Device into Superior Vena Cava, Percutaneous Approach (ICD-10-PCS; principal; 2017-03-13)
DX: A41.9 Sepsis, unspecified organism (principal); J18.8 Other pneumonia, unspecified organism; J96.21 Acute and chronic respiratory failure with hypoxia; G89.29 Other chronic pain; R26.9 Unspecified abnormalities of gait and mobility; Z72.0 Tobacco use; Z86.711 Personal history of pulmonary embolism; Z79.01 Long term (current) use of anticoagulants; J44.9 Chronic obstructive pulmonary disease, unspecified; Z85.46 Personal history of malignant neoplasm of prostate
CPT/HCPCS: 92507-GN; 92523-GN; 92610-GN; 97110-GP; 97116-GP; 97161-GP; 97165-GO; 97530-GO; 97535-GO; C1751; G8996-GN-CI; G8997-GN-CI; G9165-GN-CL; G9166-GN-CL; G9167-GN-CL; J0456; J1335; J1956

== ENCOUNTER → 2017-03-26 | Outpatient (CLI) | payer OTHER | LOC: FIMAGING 12:19 | PROVIDERS: ATTEND Family Medicine | DX: J69.0 Pneumonitis due to inhalation of food and vomit (principal) ==

== ENCOUNTER → 2017-04-30 | Outpatient (CLI) | payer OTHER | LOC: FIMAGING 10:23 | PROVIDERS: ATTEND Family Medicine | DX: J69.0 Pneumonitis due to inhalation of food and vomit (principal) ==

== ENCOUNTER 2017-05-25 12:43 | Emergency (ER) | payer OTHER ==
[2017-05-25 12:54] VITALS: RESP 18; TEMP 98.1
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
[2017-05-25 13:16] LABS: PLATELET COUNT 244 10^3/uL (150-400)
[2017-05-25 14:17] VITALS: BP 110/78; PULSE 78; O2SAT 91
== END 2017-05-25 14:18 | disposition home or self-care (01) ==
LOC: EDUNIT#
DX: S39.92XA Unspecified injury of lower back, initial encounter (principal); G89.29 Other chronic pain; J44.9 Chronic obstructive pulmonary disease, unspecified; F17.200 Nicotine dependence, unspecified, uncomplicated; Z85.46 Personal history of malignant neoplasm of prostate; Z79.01 Long term (current) use of anticoagulants; V46.0XXA Car driver injured in collision with other nonmotor vehicle in nontraffic accident, initial encounter; Y92.410 Unspecified street and highway as the place of occurrence of the external cause; Y99.8 Other external cause status; Y93.89 Activity, other specified
CPT/HCPCS: G0480

== ENCOUNTER → 2017-06-11 | Outpatient (CLI) | payer OTHER | LOC: FIMAGING 12:33 | PROVIDERS: ATTEND Family Medicine | DX: J69.0 Pneumonitis due to inhalation of food and vomit (principal) ==

== ENCOUNTER 2017-06-29 13:04 | Emergency (ER) | payer OTHER ==
[2017-06-29 13:20] VITALS: TEMP 99.1
--- NOTE | 2017-06-29 13:48 | EDPHY ---
HPI/HX/ROS/PE/MDM Narrative: CHIEF COMPLAINT: Fatigue, fever HPI: The patient is a 67 y/o male with multiple comorbidities and persistent pneumonia infection since March 2017 arriving with his for evaluation of worsening fatigue and associated fever today. His medical history includes PE , COPD on home O2, chronic hypoxemic failure, pulmonary hypertension, diastolic heart disfunction, chronic pain on opiates, prostate cancer, and multiple surgeries. He was admitted 03/13/17 with acute sepsis and pneumonia. His last round of antibiotics was in May and most recent chest x-ray 06/11/17 showed improvement but still unresolved RLL pneumonia. He was not prescribed additional antibiotics at that time. For the last 3 days his has noticed a productive cough that is worst in the mornings. Today he has been more sleepy with a shuffling gait and an "antagonistic personality" that is abnormal for him. She measured a fever of 100.4F at home. He denies chest pain, dysuria, abdominal pain, vomiting, diarrhea. REVIEW OF SYSTEMS: Aside from elements discussed in the HPI, a comprehensive 10-point review of systems was reviewed and is negative. PMH: PE 2015, PTSD, migraines, hypertension, COPD on home O2, chronic hypoxemic respiratory failure, degenerative disc disease, pseudogout, pulmonary hypertension, coronary calcifications, diastolic heart dysfunction, prostate cancer, continuous narcotic dependence, recent sepsis and pneumonia admission 2016. PSH: Cholecystectomy, bilateral shoulder surgeries, bilateral knee replacements , prostatectomy, umbilical hernia repair, tonsillectomy Prior medical records reviewed including admission 03/13/17 for sepsis and pneumonia. SOCIAL HISTORY: Smokes a pipe. Alcohol use. at bedside. PCP: Dr. Jurado PHYSICAL EXAM: General:Patient is alert, in no acute distress. SpO2 93%. ENT:Eyes are normal to inspection. ENT inspection normal. Neck: Normal inspection. Full range of motion. Respiratory:No respiratory distress. Breath sounds normal bilaterally. Cardiovascular: Regular rate and rhythm. Strong peripheral pulses. Normal cap refill. Abdomen:The abdomen is nontender to palpation. There are no peritoneal signs. Back: Normal to inspection. No tenderness to palpation. Skin: Normal color. No rash. Warm and dry. Extremities: Normal appearance. Full range of motion. Neuro: Oriented x3. Normal motor function. Normal sensory function. ED Course: This is a 67 y/o male with multiple comorbidities and almost 4-month history of improving, but not resolved, pneumonia who presents with a 3-day history of productive cough and acute fatigue, shuffling, and "antagonist" personality today per . No acute distress on exam. Suspect infectious source for symptoms today. Plan for IV, labs including cultures, UA, flu swab, chest x- ray. Patient does not meet sepsis criteria. Normal lactate. Chest x-ray: new RLL pneumonia Reassessed patient and discussed work up with him and his . Offered admission, which they declined. He will be discharged home on Levaquin with strict follow up and return precautions. MDM: This patient presents with fever and mild lethargy in the setting of recent PNA treated with Levaquin. Workup in ED reveals elevated WBC and new RLL PNA. The patient has otherwise normal vital signs and states that mental status is normal. I recommended admission to the hospital but patient and refuse. They would like to be put on PO antibiotics and follow-up with their PCP as an outpatient. I reviewed medication and culture history and will place patient back on Levaquin. History and location suggest possible aspiration but patient lists a PCN allergy which somewhat limits our choices. I think an initial trial with fluoroquinolone is reasonable with close follow-up and change in treatment plan if not responding. - Data Points Imaging Results: Imaging Impressions Chest X-Ray 06/29/17 13:36 Impression: New right lower lobe pneumonia. Imaging: I viewed and interpreted images myself Laboratory Results: Laboratory Results 06/29/17 13:52 06/29/17 13:52 06/29/17 06/29/17 06/29/17 14:40 14:15 13:52 WBC RBC Hgb Hct MCV MCH MCHC RDW Plt Count MPV Neut % (Auto) Lymph % (Auto) [place] % (Auto) Eos % (Auto) Baso % (Auto) Nucleat RBC Rel Count Absolute Neuts (auto) Absolute Lymphs (auto) Absolute Monos (auto) Absolute Eos (auto) Absolute Basos (auto) Absolute Nucleated RBC Immature Gran % Immature Gran # VBG Lactic Acid Sodium 138 mEq/L mEq/L (135-145) Potassium 5.0 mEq/L mEq/L (3.5-5.2) Chloride 103 mEq/L mEq/L (97-110) Carbon Dioxide 27 mEq/l mEq/l (22-31) Anion Gap 8 mEq/L mEq/L (8-16) BUN 14 mg/dL mg/dL (7-23) Creatinine 0.9 mg/dL mg/dL (0.7-1.3) Estimated GFR > 60 Glucose 112 mg/dL H mg/dL (70-100) Calcium 9.8 mg/dL mg/dL (8.5-10.4) Urine Color YELLOW Urine Appearance CLEAR Urine pH 5.0 (5.0-7.5) Ur Specific [place] 1.017 (1.002-1.030) Urine Protein NEGATIVE (NEGATIVE) Urine Ketones NEGATIVE (NEGATIVE) Urine Blood NEGATIVE (NEGATIVE) Urine Nitrate NEGATIVE (NEGATIVE) Urine Bilirubin NEGATIVE (NEGATIVE) Urine Urobilinogen 2.0 EU H EU (0.2-1.0) Ur Leukocyte Esterase NEGATIVE (NEGATIVE) Urine Glucose NEGATIVE (NEGATIVE) Nasal Influenza A PCR Pending Nasal Influenza B PCR Pending 06/29/17 06/29/17 13:52 13:52 WBC 19.03 10^3/uL H 10^3/uL (3.80-9.50) RBC 4.38 10^6/uL L 10^6/uL (4.40-6.38) Hgb 14.0 g/dL g/dL (13.7-17.5) Hct 40.6 % % (40.0-51.0) MCV 92.7 fL fL (81.5-99.8) MCH 32.0 pg pg (27.9-34.1) MCHC 34.5 g/dL g/dL (32.4-36.7) RDW 12.8 % % (11.5-15.2) Plt Count 193 10^3/uL 10^3/uL (150-400) MPV 10.1 fL fL (8.7-11.7) Neut % (Auto) 89.5 % H % (39.3-74.2) Lymph % (Auto) 2.9 % L % (15.0-45.0) [place] % (Auto) 6.6 % % (4.5-13.0) Eos % (Auto) 0.1 % L % (0.6-7.6) Baso % (Auto) 0.2 % L % (0.3-1.7) Nucleat RBC Rel Count 0.0 % % (0.0-0.2) Absolute Neuts (auto) 17.03 10^3/uL H 10^3/uL (1.70-6.50) Absolute Lymphs (auto) 0.56 10^3/uL L 10^3/uL (1.00-3.00) Absolute Monos (auto) 1.26 10^3/uL H 10^3/uL (0.30-0.80) Absolute Eos (auto) 0.02 10^3/uL L 10^3/uL (0.03-0.40) Absolute Basos (auto) 0.03 10^3/uL 10^3/uL (0.02-0.10) Absolute Nucleated RBC 0.00 10^3/uL 10^3/uL (0-0.01) Immature Gran % 0.7 % % (0.0-1.1) Immature Gran # 0.13 10^3/uL H 10^3/uL (0.00-0.10) VBG Lactic Acid 1.4 mmol/L mmol/L (0.7-2.1) Sodium Potassium Chloride Carbon Dioxide Anion Gap BUN Creatinine Estimated GFR Glucose Calcium Urine Color Urine Appearance Urine pH Ur Specific [place] Urine Protein Urine Ketones Urine Blood Urine Nitrate Urine Bilirubin Urine Urobilinogen Ur Leukocyte Esterase Urine Glucose Nasal Influenza A PCR Nasal Influenza B PCR Medications Given: Discontinued Medications Levofloxacin (Levaquin) 750 mg PO EDNOW ONE PRN Reason: Protocol Stop: 06/29/17 15:06 Last Admin: 06/29/17 15:09 Dose: 750 mg General Time Seen by Provider: 06/29/17 13:31 Initial Vital Signs: Initial Vital Signs Temperature (C) 37.3 C 06/29/17 13:16 Heart Rate 96 06/29/17 13:16 Respiratory Rate 16 06/29/17 13:16 Blood Pressure 130/75 H 06/29/17 13:16 O2 Sat (%) 93 06/29/17 13:16 O2 Delivery Mode Nasal Cannula O2 (L/minute) 2 Allergies/Adverse Reactions: avocado Allergy (Verified 03/13/17 09:03) cocoa [chocolate] Allergy (Verified 03/22/16 21:53) iodine Allergy (Verified 03/22/16 22:30) Penicillins Allergy (Verified 06/03/15 08:16) DIFFICULTY BREATHING promethazine HCl [From Phenergan] Allergy (Verified 08/23/14 08:32) smallpox vaccine,live Allergy (Verified 08/23/14 08:33) coconut Allergy (Uncoded 03/22/16 21:53) wasp venom Allergy (Uncoded 03/13/17 09:03) Home Medications: Medication Instructions Recorded ALPRAZolam [Xanax 1 MG (*)] 1 mg PO HS 11/28/15 Lisinopril [Zestril 10 mg (*)] 10 mg PO HS 11/28/15 oxyCODONE CR [Oxycontin] 160 mg PO BID 11/28/15 oxyCODONE IR [Oxycodone Ir (*)] 60 mg PO Q4HRS PRN 11/28/15 amLODIPine BESYLATE [Norvasc 5 mg 5 mg PO HS 03/23/16 (*)] Apixaban [Eliquis] 5 mg PO BID #75 tablet 03/25/16 levOFLOXACIN [levAQUIN] 750 mg PO DAILY #9 tab 06/29/17 Departure - Departure Disposition: Home, Routine, Self-Care Clinical Impression: Pneumonia Qualifiers: Pneumonia type: due to unspecified organism Laterality: right Lung location: lower lobe of lung Qualified Code(s): J18.1 - Lobar pneumonia, unspecified organism Condition: Good Instructions: Levofloxacin (By mouth), Bacterial Pneumonia (ED) Additional Instructions: 1. Take Levaquin as prescribed for pneumonia. Be sure to complete the entire prescription. 2. Use Tylenol and ibuprofen as directed for fever. 3. Follow up with your primary care provider in the next 2-3 days for reevaluation. 4. Return to the ED for any worsening of condition. Referrals: Deepak Jurado DO [Primary Care Provider] - As per Instructions Prescriptions: levOFLOXACIN [levAQUIN] 750 mg PO DAILY #9 tab Report Scribed for: Neil Jean Report Scribed by: Angélica Honeycutt Date of Report: 06/29/17 Time of Report: 13:48 Physician Review and Approval Statement: Portions of this note were transcribed by an ED scribe. I personally performed the history, physical exam, and medical decision making; and confirm the accuracy of the information in the transcribed note.
[2017-06-29 14:03] LABS: PLATELET COUNT 193 10^3/uL (150-400)
[2017-06-29 15:21] VITALS: BP 138/85; PULSE 78; RESP 16; O2SAT 97
== END 2017-06-29 15:20 | disposition home or self-care (01) ==
DX: J18.1 Lobar pneumonia, unspecified organism (principal); J44.9 Chronic obstructive pulmonary disease, unspecified; F17.290 Nicotine dependence, other tobacco product, uncomplicated; I10 Essential (primary) hypertension; Z85.46 Personal history of malignant neoplasm of prostate

== ENCOUNTER → 2017-08-13 | Outpatient (CLI) | payer OTHER | LOC: FIMAGING 13:38 | PROVIDERS: ATTEND Internal Medicine Critical Care Medicine | DX: J98.4 Other disorders of lung (principal) ==

== ENCOUNTER → 2017-10-02 | Outpatient (CLI) | payer OTHER | LOC: FIMAGING 14:08 | PROVIDERS: ATTEND Family Medicine | DX: N62 Hypertrophy of breast (principal) ==

== ENCOUNTER 2017-10-13 13:08 | Emergency (ER) | payer OTHER ==
[2017-10-13] MEDS ORDERED: methylPREDNISolone SOD SUCC 125 MG/2 ML VIAL IVP ONE (13:14)
[2017-10-13] MEDS ORDERED: RANITIDINE 50 MG/2 ML VIAL IVP ONE (13:14)
[2017-10-13] MEDS ORDERED: NS 1,000 ML IV ONE (13:14)
--- NOTE | 2017-10-13 13:17 | EDPHY ---
H & P Time Seen by Provider: 10/13/17 13:09 HPI/ROS: CHIEF COMPLAINT: Itching and throat is tight HISTORY OF PRESENT ILLNESS: Patient was stung on the right lateral chest by a wasp about an hour ago, he has had previous allergic reactions but owns an EpiPen and never had to use it. He started feeling itchy everywhere and then felt like his throat was a little bit tight. No wheezing and no abdominal cramping or vomiting. No stridor and normal ability to swallow. Symptoms mild to moderate., slightly increasing since the sting. REVIEW OF SYSTEMS: Eye: no change in vision ENT: HPI Cardiac: no chest pain or syncope Pulmonary: no cough or SOB Abdomen: no vomiting, diarrhea, abdominal pain Musculoskeletal: no back pain Skin: HPI Neuro: no headache Constitutional: no fever : no urinary symptoms A comprehensive 10 point review of systems is otherwise negative aside from elements mentioned in the history of present illness. PAST MEDICAL HISTORY: Includes psoriasis and chronic back pain Social history: Here with his spouse General Appearance: Alert and conversant, cooperative. Eyes: No scleral icterus. ENT, Mouth: Normal mucous membranes. No visible angioedema. Respiratory: Normal respiratory effort, breath sounds equal, lungs are clear to auscultation. No wheezing. Speaks in full sentences. Normal voice. Not hoarse. Cardiovascular: Regular rate and rhythm. Gastrointestinal: Abdomen is soft and non tender. Neurological: Alert, face symmetric, normal motor and sensory in extremities. Skin: Psoriasis present in multiple areas, and a couple of hives on his anterior chest wall. Redness and slight swelling 2 cm around the right chest wall insect sting. Musculoskeletal: No peripheral edema. Psychiatric: Not agitated. Emergency Department course/MDM: Patient has hives but no objective evidence of airway involvement. No wheezing or angioedema visible. Uvula is normal. Solu-Medrol 125 and Benadryl 50, ranitidine 50 and observation. 1435: States that he now feels back to normal, no angioedema, no wheezing. Does not this point appear to require epinephrine. Normal voice. Discharge with oral steroid burst and antihistamines. Has EpiPen with him if he should need it. Smoking Status: Current every day smoker Constitutional: Initial Vital Signs Temperature (C) 37 C 10/13/17 13:10 Heart Rate 76 10/13/17 13:10 Respiratory Rate 16 10/13/17 13:10 Blood Pressure 117/73 10/13/17 13:10 O2 Sat (%) 91 L 10/13/17 13:10 O2 Delivery Mode Nasal Cannula O2 (L/minute) 2 Allergies/Adverse Reactions: avocado Allergy (Verified 10/13/17 13:14) cocoa [chocolate] Allergy (Verified 10/13/17 13:14) iodine Allergy (Verified 10/13/17 13:14) Penicillins Allergy (Verified 10/13/17 13:14) DIFFICULTY BREATHING promethazine HCl [From Phenergan] Allergy (Verified 10/13/17 13:14) smallpox vaccine,live Allergy (Verified 10/13/17 13:14) coconut Allergy (Uncoded 10/13/17 13:14) wasp venom Allergy (Uncoded 10/13/17 13:14) Home Medications: Medication Instructions Recorded ALPRAZolam [Xanax 1 MG (*)] 1 mg PO HS 11/28/15 Lisinopril [Zestril 10 mg (*)] 10 mg PO HS 11/28/15 oxyCODONE CR [Oxycontin] 160 mg PO BID 11/28/15 oxyCODONE IR [Oxycodone Ir (*)] 60 mg PO Q4HRS PRN 11/28/15 amLODIPine BESYLATE [Norvasc 5 mg 5 mg PO HS 03/23/16 (*)] Apixaban [Eliquis] 5 mg PO BID #75 tablet 03/25/16 Atorvastatin Calcium 10/13/17 Famotidine [Pepcid] 20 mg PO BID #6 tab 10/13/17 predniSONE 10 mg PO AD #15 tab 10/13/17 Medical Decision Making Differential Diagnosis: Differential considered including but not limited to anaphylaxis, idiopathic angioedema, ENT infection, local allergic reaction - Data Points Medications Given: Discontinued Medications Diphenhydramine HCl (Benadryl Injection) 50 mg IVP EDNOW ONE Stop: 10/13/17 13:15 Last Admin: 10/13/17 13:27 Dose: 50 mg Sodium Chloride (Ns) 1,000 mls @ 0 mls/hr IV ONCE ONE; Wide Open PRN Reason: Protocol Stop: 10/13/17 13:15 Last Admin: 10/13/17 13:29 Dose: 1,000 mls Methylprednisolone Sodium Succinate (Solu-Medrol) 125 mg IVP EDNOW ONE Stop: 10/13/17 13:15 Last Admin: 10/13/17 13:28 Dose: 125 mg Ranitidine HCl (Zantac) 50 mg IVP EDNOW ONE Stop: 10/13/17 13:15 Last Admin: 10/13/17 13:26 Dose: 50 mg Departure - Departure Disposition: Home, Routine, Self-Care Clinical Impression: Allergic reaction Qualifiers: Encounter type: initial encounter Qualified Code(s): T78.40XA - Allergy, unspecified, initial encounter Insect sting Qualifiers: Encounter type: initial encounter Injury intent: undetermined intent Qualified Code(s): T63.484A - Toxic effect of venom of other arthropod, undetermined, initial encounter Condition: Good Instructions: Insect Bite or Sting (ED) Referrals: Deepak Jurado DO [Primary Care Provider] - As per Instructions Prescriptions: Famotidine [Pepcid] 20 mg PO BID #6 tab predniSONE 10 mg PO AD #15 tab
[2017-10-13 15:10] VITALS: BP 107/73
== END 2017-10-13 15:21 | disposition home or self-care (01) ==
DX: T63.484A Toxic effect of venom of other arthropod, undetermined, initial encounter (principal); E86.9 Volume depletion, unspecified; F17.200 Nicotine dependence, unspecified, uncomplicated; Z79.01 Long term (current) use of anticoagulants
CPT/HCPCS: 96374; 96375; 99284; J1200; J2780; J2930